=== PATIENT | male | born 1990 | race Caucasian/White ===

== ENCOUNTER 2016-11-15 01:50 | Emergency (ER) | payer OTHER ==
[2016-11-15 01:57] VITALS: BP 130/75
[2016-11-15] MEDS ORDERED: DIAZEPAM INJ 10 MG/2 ML DISP.SYRIN IM ONE (03:46)
--- NOTE | 2016-11-15 03:52 | ER Document Report ---
HPI - HPI Patient complains to provider of: lower back pain Pain Level: 5 Context: Patient is a 25-year-old male that comes emergency department with chief complaint of pain in his lower back, he states he has been having this pain since about one year ago, states he has this pain frequently, states that he did not have any particular injuries, he denies any surgeries. He states he has seen a chiropractor for this but it did not change his symptoms. 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 He denies any fevers or chills, IV drug abuse, or any daily medications. - CARDIOVASCULAR Cardiovascular: DENIES: Chest pain - DERM Skin Color: Normal Past Medical History - General Information source: Patient - Social History Smoking Status: Current Every Day Smoker Chew tobacco use (# tins/day): No Frequency of alcohol use: Rare Drug Abuse: None Lives with: Family Family History: Reviewed & Not Pertinent Patient has suicidal ideation: No Patient has homicidal ideation: No Pulmonary Medical History: Reports: Hx Asthma Renal/ Medical History: Denies: Hx Peritoneal Dialysis Musculoskeltal Medical History: Reports Hx Musculoskeletal Deformity, Reports Hx Musculoskeletal Trauma Skin Medical History: Reports Hx Cellulitis Surgical Hx: Negative Vertical Provider Document - CONSTITUTIONAL General Appearance: WD/WN, No Apparent Distress - INFECTION CONTROL TRAVEL OUTSIDE OF THE [place] IN LAST 30 DAYS: No - HEENT HEENT: Atraumatic, Normal ENT Exam, Normocephalic - NECK Neck: Normal Inspection - RESPIRATORY Respiratory: Breath Sounds Normal, No Respiratory Distress O2 Sat by Pulse Oximetry: 99 - CARDIOVASCULAR Cardiovascular: Regular Rate, Regular Rhythm - GI/ABDOMEN Gastrointestinal: Abdomen Soft, Abdomen Non-Tender - BACK Back: negative: Normal Inspection - There is some tenderness in the left lumbar paraspinal musculature, no saddle anesthesia, normal midline exam of the spine, normal upper and lower extremity range of motion, strength, distal neurovascular exam. - NEURO Level of Consciousness: Awake, Alert, Appropriate Motor/Sensory: No Motor Deficit, No Sensory Deficit Course - Re-evaluation Re-evalutation: Reviewed patient's CAT scan of the lumbar spine which has been performed after patient's symptoms started, this was completely normal. Patient's examination is very unremarkable, patient moves easily, ambulates easily, has no neurological deficits, does not have impressive straight leg raise or palpation examination. Patient is alert and well-appearing. Will discharge with muscle relaxants, discussed primary care follow-up and return precautions, patient states understanding and agreement. - Vital Signs Vital signs: Temp Pulse Resp BP Pulse Ox 98.0 F 72 18 130/75 H 99 11/15/16 01:55 11/15/16 01:55 11/15/16 01:55 11/15/16 01:55 11/15/16 01:55 Discharge - Discharge Clinical Impression: Lower back pain Qualifiers: Chronicity: acute Back pain laterality: unspecified Sciatica presence: without sciatica Qualified Code(s): M54.5 - Low back pain Condition: Stable Disposition: HOME, SELF-CARE Additional Instructions: Previous imaging, symptoms, and current exam are most consistent with a muscular source of your pain. Improve shoe support, take naproxen and Robaxin as directed if needed, apply heat to your back. Follow-up with primary care. Return to emergency department for any concerning symptoms. Prescriptions: Methocarbamol [Robaxin 750 mg Tablet] 750 mg PO Q6 #20 tablet Naproxen 500 mg PO BID #20 tablet
== END 2016-11-15 04:19 | disposition home or self-care (01) ==
LOC: ER 01:50
DX: M54.5 Low back pain (principal); F17.200 Nicotine dependence, unspecified, uncomplicated; J45.909 Unspecified asthma, uncomplicated
CPT/HCPCS: 99283; 96372; J3360

== ENCOUNTER 2017-02-26 20:50 | Emergency (ER) | payer SELFPAY ==
--- NOTE | 2017-02-27 02:00 | RADIOLOGY REPORT (SQ) ---
EXAM DESCRIPTION: CHEST SINGLE VIEW COMPLETED DATE/TIME: 02/27/2017 1:52 am REASON FOR STUDY: sob, fever COMPARISON: None. EXAM PARAMETERS: NUMBER OF VIEWS: One view. TECHNIQUE: Single frontal radiographic view of the chest acquired. RADIATION DOSE: NA LIMITATIONS: None. FINDINGS: LUNGS AND PLEURA: No opacities, masses or pneumothorax. No pleural effusion. MEDIASTINUM AND HILAR STRUCTURES: No masses. Contour normal. HEART AND VASCULAR STRUCTURES: Heart normal in size. Normal vasculature. BONES: No acute findings. HARDWARE: None in the chest. OTHER: No other significant finding. IMPRESSION: NO ACUTE RADIOGRAPHIC FINDING IN THE CHEST. TECHNICAL DOCUMENTATION: JOB ID: [id number]
[2017-02-27 02:06] LABS: APPEARANCE,URINE SLIGHTLY-CLOUDY; BILIRUBIN,URINE NEGATIVE (NEGATIVE); GLUCOSE, URINE NEGATIVE (NEGATIVE); KETONES,URINE 20 mg/dL (NEGATIVE); LEUKOCYTE ESTERASE,URINE NEGATIVE (NEGATIVE); NITRITE,URINE NEGATIVE (NEGATIVE); PROTEIN,URINE 30 mg/dL (NEGATIVE); URINE SPECIFIC GRAVITY 1.024
[2017-02-27 02:08] LABS: HEMOGLOBIN 15.9 g/dL (13.5-17.0); HGB HCT DIFFERENCE 0.7; MEAN CORPUSCULAR HEMOGLOBIN 29.6 pg (27.0-33.4); MEAN CORPUSCULAR HGB CONC 33.8 g/dL (32.0-36.0); MEAN CORPUSCULAR VOLUME 87 fl (80-97); RED BLOOD COUNT 5.37 10^6/uL (4.35-5.55); RED CELL DISTRIBUTION WIDTH 13.2 % (11.5-14.0); WHITE BLOOD COUNT 11.1 10^3/uL (4.0-10.5)
[2017-02-27 02:11] LABS: ALANINE AMINOTRANSFERASE 40 U/L (21-72); ALBUMIN 4.7 g/dL (3.5-5.0); ALKALINE PHOSPHATASE 69 U/L (38-126); ANION GAP 15 (5-19); ASPARTATE AMINO TRANSFERASE 27 U/L (17-59); BILIRUBIN,DIRECT 0.4 mg/dL (0.0-0.4); BILIRUBIN,TOTAL 0.7 mg/dL (0.2-1.3); BLOOD UREA NITROGEN 11 mg/dL (7-20); CALCIUM 9.5 mg/dL (8.4-10.2); CARBON DIOXIDE 25 mmol/L (22-30); CHLORIDE 102 mmol/L (98-107); CREATININE RESULT 0.71 mg/dL (0.52-1.25); GLUCOSE 113 mg/dL (75-110); POTASSIUM 4.1 mmol/L (3.6-5.0); SODIUM 142.3 mmol/L (137-145); TOTAL PROTEIN 8.2 g/dL (6.3-8.2)
[2017-02-27 02:15] LABS: BAND NEUTROPHILS % (MANUAL) 5 % (3-5); BASOPHILS % (MANUAL) 0 % (0-2); EOSINOPHILS % (MANUAL) 0 % (0-6); LYMPHOCYTES % (MANUAL) 6 % (13-45); TOTAL CELLS COUNTED 100
[2017-02-27 02:16] LABS: RBC MORPHOLOGY COMMENT NORMO-CYTIC/CHROMIC
--- NOTE | 2017-02-27 02:33 | ER Document Report ---
ED General - General Chief Complaint: Fever Stated Complaint: FEVER Time Seen by Provider: 02/27/17 01:34 Notes: Patient is a 26-year-old male without past medical history, up-to-date on all immunizations, no prior surgical history who presents with 4 days of fever, diaphoresis, chills, headache and neck pain. Symptoms have been worsening since onset. Nothing improves or worsens his symptoms. States he was seen by his primary care doctor regarding these concerns and started on amoxicillin told that he may have a spinal meningitis. No history of similar symptoms in the past. No known sick contacts. States that he lives in an area where he has a high probability of a tick exposure. He denies any focal abdominal pain, cough, shortness of breath, sputum production, sinus pressure, sore throat, weakness, numbness, confusion, dysuria or flank pain. No rashes. TRAVEL OUTSIDE OF THE [place] IN LAST 30 DAYS: No - Related Data Allergies/Adverse Reactions: acetaminophen [From Tylenol] Allergy (Verified 11/25/15 23:38) chocolate flavor Allergy (Verified 07/31/16 16:28) Past Medical History - General Information source: Patient - Social History Smoking Status: Never Smoker Frequency of alcohol use: None Drug Abuse: None Lives with: Family Family History: Reviewed & Not Pertinent Patient has suicidal ideation: No Patient has homicidal ideation: No Pulmonary Medical History: Reports: Hx Asthma Renal/ Medical History: Denies: Hx Peritoneal Dialysis Musculoskeltal Medical History: Reports Hx Musculoskeletal Deformity, Reports Hx Musculoskeletal Trauma Skin Medical History: Reports Hx Cellulitis Review of Systems - Review of Systems Notes: Constitutional: Positive for fever. HENT: Negative for sore throat. Eyes: Negative for visual changes. Cardiovascular: Negative for chest pain. Respiratory: Negative for shortness of breath. Gastrointestinal: Negative for abdominal pain, vomiting or diarrhea. Genitourinary: Negative for dysuria. Musculoskeletal: Negative for back pain. Skin: Negative for rash. Neurological: Negative for headaches, weakness or numbness. 10 point ROS negative except as marked above and in HPI. Physical Exam - Vital signs Vitals: Temp Pulse Resp BP Pulse Ox 98 F 108 H 18 122/67 100 02/26/17 21:15 02/26/17 21:15 02/26/17 21:15 02/26/17 21:15 02/26/17 21:15 Interpretation: Tachycardic Notes: PHYSICAL EXAMINATION: GENERAL: Well-appearing, well-nourished and in no acute distress. HEAD: Atraumatic, normocephalic. EYES: Pupils equal round and reactive to light, extraocular movements intact, sclera anicteric, conjunctiva are normal. ENT: nares patent, oropharynx clear without exudates. Moist mucous membranes. NECK: Normal range of motion, supple without lymphadenopathy LUNGS: Breath sounds clear to auscultation bilaterally and equal. No wheezes rales or rhonchi. HEART: Regular rate and rhythm without murmurs ABDOMEN: Soft, nontender, normoactive bowel sounds. No guarding, no rebound. No masses appreciated. EXTREMITIES: Normal range of motion, no pitting or edema. No cyanosis. NEUROLOGICAL: No focal neurological deficits. Moves all extremities spontaneously and on command. PSYCH: Normal mood, normal affect. SKIN: Warm, Dry, normal turgor, no rashes or lesions noted. Course - Re-evaluation Re-evalutation: 02/27/17 02:28 Patient presents with 4 days of fever, headache, diaphoresis and chills. He is overall extremely well in appearance on exam, vitals within normal limits both triage and time of discharge. Patient has no meningismus no limited neck range of motion. No focal neurologic deficits. Physical examination is unremarkable without abdominal pain, decreased breath sounds in any region, pharyngitis, or rash. Urinalysis and labs are unremarkable. A chest x-ray is clear. I do not suspect an acute bacterial meningitis given the patient has had symptoms ongoing for the past 4 days, had normal vitals, is well in appearance, does not have a leukocytosis. Given geographic location and time of year I will empirically treat for [place] spotted fever with doxycycline. At this time will discharge with return precautions and follow-up recommendations. Verbal discharge instructions given a the bedside and opportunity for questions given. Medication warnings reviewed. Patient is in agreement with this plan and has verbalized understanding of return precautions and the need for primary care follow-up in the next 24-72 hours. - Vital Signs Vital signs: Temp Pulse Resp BP Pulse Ox 98 F 69 18 126/65 H 100 02/26/17 21:15 02/27/17 02:42 02/27/17 02:42 02/27/17 02:42 02/27/17 02:42 - Laboratory Result Diagrams: 02/27/17 01:42 02/27/17 01:42 Laboratory results interpreted by me: 02/27/17 02/27/17 02/27/17 01:42 01:42 01:42 WBC 11.1 H Seg Neuts % (Manual) 81 H Lymphocytes % (Manual) 6 L Abs Neuts (Manual) 9.5 H Glucose 113 H Urine Protein 30 H Urine Ketones 20 H Urine Urobilinogen 4.0 H - Diagnostic Test Radiology reviewed: Image reviewed, Reports reviewed Radiology results interpreted by me: 02/27/17 02:29 Chest x-ray: No acute infiltrate Discharge - Discharge Clinical Impression: Fever of unknown origin Condition: Good Disposition: HOME, SELF-CARE Additional Instructions: The exact cause of your fever and symptoms of uncertain at this time but likely related to [place] spotted fever. Please take doxycycline exactly as prescribed and complete all of the medication. Return to the emergency department immediately if you develop worsening of your symptoms, your symptoms do not improve in the next 3-4 days, you become confused, have persistent vomiting or any other symptoms that are concerning to you. Please follow-up with your primary care doctor in the next 1-2 days.
[2017-02-27 02:45] VITALS: BP 126/65
== END 2017-02-27 02:45 | disposition home or self-care (01) ==
LOC: ER 20:50
DX: R50.9 Fever, unspecified (principal); R51 Headache; M54.2 Cervicalgia
CPT/HCPCS: 36415; 71010; 80053; 81001; 85025; 99283

== ENCOUNTER 2018-02-06 02:42 | Emergency (ER) | payer OTHER ==
[2018-02-06 03:02] VITALS: BP 143/75
--- NOTE | 2018-02-06 03:46 | RADIOLOGY REPORT (SQ) ---
EXAM DESCRIPTION: 2 views of the left forearm. CLINICAL HISTORY: needle in left AC after injecting cocaine COMPARISON: None. FINDINGS: 2 views of the left forearm. No acute fracture or dislocation. Normal osseous mineralization. 3 mm linear foreign body noted overlying the antecubital fossa. IMPRESSION: 1. No acute fracture or dislocation. 2. There is a 3 mm linear foreign body overlying the antecubital fossa.
--- NOTE | 2018-02-06 04:15 | ER Document Report ---
ED Foreign Body - General Chief Complaint: Foreign Body Stated Complaint: FOREIGN OBJECT IN LEFT ARM Time Seen by Provider: 02/06/18 03:07 Mode of Arrival: Ambulatory Information source: Patient Notes: Patient is a 27-year-old male who presents to the ER today for possible needle tip broken off in his left arm. Patient states he was trying to inject cocaine prior to arrival in the left AC when the needle tip bent and broke off. Patient states he has been using cocaine for 7 years. He states that he did not actually inject cocaine today. TRAVEL OUTSIDE OF THE [place] IN LAST 30 DAYS: No - Related Data Allergies/Adverse Reactions: acetaminophen [From Tylenol] Allergy (Verified 11/25/15 23:38) chocolate flavor Allergy (Verified 07/31/16 16:28) Past Medical History - General Information source: Patient - Social History Smoking Status: Current Every Day Smoker Family History: Reviewed & Not Pertinent Pulmonary Medical History: Reports: Hx Asthma Renal/ Medical History: Denies: Hx Peritoneal Dialysis Musculoskeltal Medical History: Reports Hx Musculoskeletal Deformity, Reports Hx Musculoskeletal Trauma Skin Medical History: Reports Hx Cellulitis Review of Systems - Review of Systems Constitutional: No symptoms reported EENT: No symptoms reported Cardiovascular: No symptoms reported Respiratory: No symptoms reported Gastrointestinal: No symptoms reported Genitourinary: No symptoms reported Male Genitourinary: No symptoms reported Musculoskeletal: No symptoms reported Skin: See HPI Hematologic/Lymphatic: No symptoms reported Neurological/Psychological: No symptoms reported Physical Exam - Vital signs Vitals: Temp Pulse Resp BP Pulse Ox 98.4 F 76 14 143/75 H 98 02/06/18 03:01 02/06/18 03:01 02/06/18 03:01 02/06/18 03:01 02/06/18 03:01 - Notes Notes: PHYSICAL EXAMINATION: GENERAL: Well-appearing and in no acute distress. HEAD: Atraumatic, normocephalic. EYES: Pupils equal round and reactive to light, extraocular movements intact, sclera anicteric, conjunctiva are normal. NECK: Normal range of motion, supple without lymphadenopathy LUNGS: CTAB and equal. No wheezes rales or rhonchi. HEART: Regular rate and rhythm without murmurs EXTREMITIES: Normal range of motion, no pitting edema. No cyanosis. NEUROLOGICAL: Cranial nerves grossly intact. Normal sensory/motor exams. PSYCH: Normal mood, normal affect. SKIN: Warm, Dry, normal turgor, large areas of scar tissue to left AC without foreign body palpable, no drainage, some erythema, no bleeding Course - Re-evaluation Re-evalutation: 02/06/18 02:18 I cannot locate any metallic foreign body via bedside ultrasound, due to this x- ray was performed and did locate a 3 mm metallic foreign body in the left AC. Discussed this with the patient, stating that it would be very difficult to find with all the scar tissue he has built up in that space. I did speak with surgeon on-call, Dr. Blevins who states that there is nothing emergent at this time and that he can follow-up with him in the office. I did give the patient Dr. Blevins's information and he promises to call in the next business day for an appointment. Patient's vitals are all within normal limits and he is in no acute distress. - Vital Signs Vital signs: Temp Pulse Resp BP Pulse Ox 98.4 F 76 14 143/75 H 98 02/06/18 03:01 02/06/18 03:01 02/06/18 03:01 02/06/18 03:01 02/06/18 03:01 Discharge - Discharge Clinical Impression: Foreign body of upper arm Qualifiers: Encounter type: initial encounter Laterality: left Qualified Code(s): S40.852A - Superficial foreign body of left upper arm, initial encounter Condition: Stable Disposition: HOME, SELF-CARE Additional Instructions: Return immediately for any new or worsening symptoms. Follow up with surgeon, call tomorrow to make followup appointment. Referrals: FAM BLEVINS MD [[facility]] - Follow up as needed
== END 2018-02-06 04:37 | disposition home or self-care (01) ==
LOC: ER 02:42
DX: S40.852A Superficial foreign body of left upper arm, initial encounter (principal); W45.8XXA Other foreign body or object entering through skin, initial encounter; F14.90 Cocaine use, unspecified, uncomplicated; F17.200 Nicotine dependence, unspecified, uncomplicated; J45.909 Unspecified asthma, uncomplicated
CPT/HCPCS: 99283

== ENCOUNTER 2018-02-28 18:08 | Emergency (ER) | payer BC ==
[2018-02-28] MEDS ORDERED: CEPHALEXIN 500 MG CAPSULE PO ONE (19:07)
[2018-02-28] MEDS ORDERED: SULFAMETHOXAZOLE/TRIMETHOPRIM 800-160 MG TABLET PO ONE (19:07)
--- NOTE | 2018-02-28 19:07 | ER Document Report ---
HPI - HPI Patient complains to provider of: Right wrist inflammation Onset: Yesterday - 9:30 PM Onset/Duration: Gradual Pain Level: 3 Context: 27-year-old male injected a OxyContin that he had melted with using a clean needle and syringe into his right radial vein. He thinks he missed because he did not get the usual high and the tissue burner at an was uncomfortable. The wrist then during the night became more uncomfortable and hurt to move his wrist. The pain has actually improved throughout the day he can move it more. He states the erythema that he has is when OxyContin is infiltrated. He does think it is warmer than usual and wants antibiotics. Associated Symptoms: None Exacerbated by: Denies Relieved by: Denies - ROS ROS below otherwise negative: Yes Systems Reviewed and Negative: Yes All other systems reviewed and negative - CONSTITUTIONAL Constitutional: DENIES: Fever, Chills - DERM Skin Color: Erythema Past Medical History - General Information source: Patient - Social History Smoking Status: Current Every Day Smoker Chew tobacco use (# tins/day): No Frequency of alcohol use: Social Drug Abuse: Marijuana, Prescription drugs - oxycontin Lives with: Spouse/Significant other Family History: Reviewed & Not Pertinent Patient has suicidal ideation: No Patient has homicidal ideation: No Pulmonary Medical History: Reports: Hx Asthma Renal/ Medical History: Denies: Hx Peritoneal Dialysis Musculoskeltal Medical History: Reports Hx Musculoskeletal Deformity, Reports Hx Musculoskeletal Trauma Skin Medical History: Reports Hx Cellulitis Vertical Provider Document - CONSTITUTIONAL Agree With Documented VS: Yes Exam Limitations: No Limitations General Appearance: No Apparent Distress - INFECTION CONTROL TRAVEL OUTSIDE OF THE [place] IN LAST 30 DAYS: No - HEENT HEENT: Normocephalic - NECK Neck: Supple - RESPIRATORY Respiratory: Breath Sounds Normal, No Respiratory Distress - CARDIOVASCULAR Cardiovascular: Regular Rate, Regular Rhythm - MUSCULOSKELETAL/EXTREMETIES Musculoskeletal/Extremeties: MAEW, FROM, Tender - Mild tender to erythematous tissue around the radial vein that he missed and infiltrated the substance into the tissues. I did ani this with a marking pen. It is warm. No edema.. negative: Edema, Eccymosis - NEURO Level of Consciousness: Awake, Alert Motor/Sensory: No Motor Deficit, No Sensory Deficit - DERM Integumentary: No Rash Course - Vital Signs Vital signs: Temp Pulse Resp BP Pulse Ox 98.9 F 86 18 125/79 100 02/28/18 18:13 02/28/18 18:13 02/28/18 18:13 02/28/18 18:13 02/28/18 18:13 Discharge - Discharge Clinical Impression: oxycontin infiltration, Soft tissue inflammation Asthma Qualifiers: Asthma severity: unspecified severity Asthma persistence: unspecified Asthma complication type: unspecified Qualified Code(s): J45.909 - Unspecified asthma, uncomplicated Condition: Good Disposition: HOME, SELF-CARE Instructions: Cellulitis ([facility]), Cephalexin ([facility]), Inhaled Bronchodilators ([facility]) , Trimethoprim-Sulfa ([facility]), Warm Packs ([facility]) Additional Instructions: Take the antibiotics Return if the erythema goes outside the purple skin markings Warm compress Elevate her arm above your heart Do not inject in this arm. Seek rehab that she discussed with me Prescriptions: Albuterol Sulfate [Proair HFA Inhalation Aerosol 8.5 gm MDI] 2 puff IH Q3HP PRN #1 [id number] PRN Reason: Cephalexin Monohydrate [Keflex 500 mg Capsule] 500 mg PO QID #28 capsule Sulfamethoxazole/Trimethoprim [Sulfamethoxazole-Tmp Ds Tablet] 1 each PO BID # 14 tablet Referrals: MONICA SORTO MD [Primary Care Provider] - Follow up as needed
[2018-02-28 19:19] VITALS: BP 117/71
== END 2018-02-28 19:19 | disposition home or self-care (01) ==
LOC: ER 18:08
DX: F11.10 Opioid abuse, uncomplicated (principal); M79.9 Soft tissue disorder, unspecified; J45.909 Unspecified asthma, uncomplicated; F12.10 Cannabis abuse, uncomplicated; F17.200 Nicotine dependence, unspecified, uncomplicated
CPT/HCPCS: 99283